=== PATIENT | female | born 1940 | race Caucasian/White ===

== ENCOUNTER 2020-08-18 09:46 | Outpatient (REF) | payer MEDICARE, SELFPAY ==
--- NOTE | ~2020-08-18 | MM_ITS ---
EXAMINATION: BONE DENSITOMETRY CLINICAL INDICATION: Age-related osteoporosis without current pathological fracture. COMPARISON: Previous BD dated 07/27/2017 and baseline BD dated 05/01/2012. TECHNIQUE: Using a [employer] DXA System (software version: 13.1) manufactured by [employer], dual-energy x-ray absorptiometry was performed of the lumbar spine and left hip. The images are of good technical quality. Summary results are attached. FINDINGS: AP SPINE L1-L2 (excluding L3 and L4): The data of L1-L4 has been changed to exclude the L3 and L4 vertebral bodies, because degenerative changes at these levels may cause overestimation of lumbar spine density. Current: BMD 0.847 g/cm2, Z-score -0.7, T-score -2.7, osteoporosis, 18.5% increase from previous, 9.7% increase from baseline (<5% change is not significant). Prior: BMD 0.715 g/cm2. Baseline: BMD 0.772 g/cm2. LEFT FEMUR, NECK: Current: BMD 0.704 g/cm2, Z-score -0.2, T-score -2.4, osteopenia. Prior: BMD 0.705 g/cm2. Baseline: BMD 0.725 g/cm2. LEFT FEMUR, TOTAL: Current: BMD 0.803 g/cm2, Z-score 0.4, T-score -1.6, osteopenia, 1.3% increase from previous, 4.2% decrease from baseline (<5% change is not significant). Prior: BMD 0.793 g/cm2. Baseline: BMD 0.838 g/cm2. IDENTIFIED RISK FACTORS: Osteoporosis. Secondary osteoporosis (early menopause). HISTORY OF FRACTURE: None listed. MEDICATIONS: Calcium supplement and/or multivitamin. Vitamin D. MM/XR DEXA axial skeleton IMPRESSION: 1. DIAGNOSIS: Osteoporosis based on the lowest T-score value of -2.7 in the lumbar spine applying World Health Organization criteria. 2. 10-YEAR FRACTURE RISK PREDICTION, FRAX: Major osteoporotic fracture (clinical spine, forearm, hip or shoulder) 18.1%. Hip fracture 6.2%. 3. Treatment Recommendations: NOF guidelines recommend consideration for treatment in postmenopausal women and men age 50 and older presenting with the following: -A hip or vertebral (clinical or morphometric) fracture. -T-score less than or equal to -2.5 at the femoral neck or spine after appropriate evaluation to exclude secondary causes. -Low bone mass at the hip or spine and a 10-year fracture probability by FRAX of greater than or equal to 3% for hip fracture or greater than or equal to 20% for major osteoporotic fracture based on the [place] adapted WHO algorithm. 4. Other Recommendations: All treatment decisions require clinical judgment and consideration of individual patient factors, including patient preferences, comorbidities, previous drug use, risk factors not captured in the FRAX model (e.g. frailty, falls, vitamin D deficiency, increased bone turnover, interval significant decline in bone density) and possible under or overestimation of fracture risk by FRAX. Additional medical evaluation for secondary cause of low bone mineral density may be appropriate. FUTURE SCAN RECOMMENDATION: People with diagnosed cases of osteoporosis or at high risk for fracture should have regular bone mineral density tests. For patients eligible for Medicare, routine testing is allowed once every 2 years. The testing frequency can be increased to one year for patients who have rapidly progressing disease, those who are receiving or discontinuing medical therapy to restore bone mass, or have additional risk factors.
== END 2020-08-18 09:47 | disposition home or self-care (01) ==
LOC: HO.MAMMO 09:46
PROVIDERS: Visit Provider Internal Medicine
DX: Z13.820 Encounter for screening for osteoporosis (principal); M81.0 Age-related osteoporosis without current pathological fracture; Z78.0 Asymptomatic menopausal state; Z79.899 Other long term (current) drug therapy
CPT/HCPCS: 77080

== ENCOUNTER 2022-09-22 14:28 | Outpatient (REF) | payer MEDICARE, SELFPAY ==
--- NOTE | ~2022-09-22 | MM_ITS ---
EXAMINATION: BONE DENSITOMETRY CLINICAL INDICATION: Osteoporosis. COMPARISON: Previous BD dated 08/18/2020 and baseline BD dated 05/01/2012. TECHNIQUE: Using a [employer] DXA System (software version: 13.1) manufactured by [employer], dual-energy x-ray absorptiometry was performed of the lumbar spine and left hip. The images are of good technical quality. Summary results are attached. FINDINGS: LEFT FEMUR, NECK: Current: BMD 0.709 g/cm2, Z-score 0.0, T-score -2.4, osteopenia. Prior: BMD 0.704 g/cm2. Baseline: BMD 0.725 g/cm2. LEFT FEMUR, TOTAL: Current: BMD 0.763 g/cm2, Z-score 0.3, T-score -1.9, osteopenia, 5.0% decrease from previous, 8.9% decrease from baseline (<5% change is not significant). Prior: BMD 0.803 g/cm2. Baseline: BMD 0.838 g/cm2. AP SPINE L1-L2 (excluding L3 and L4): The data of L1-L4 has been changed to exclude the L3 and L4 vertebral bodies, because degenerative sclerosis at these levels may cause overestimation of lumbar spine density. Current: BMD 0.814 g/cm2, Z-score -0.9, T-score -2.9, osteoporosis, 3.9% decrease from previous, 5.4% increase from baseline (<5% change is not significant). Prior: BMD 0.847 g/cm2. Baseline: BMD 0.772 g/cm2. IDENTIFIED RISK FACTORS: Early menopause, osteoporosis, secondary osteoporosis. HISTORY OF FRACTURE: None listed. MEDICATIONS: Calcium, vitamin D. MM/XR DEXA axial skeleton IMPRESSION: 1. DIAGNOSIS: Osteoporosis based on the lowest T-score value of -2.9 in the lumbar spine applying World Health Organization criteria. 2. 10-YEAR FRACTURE RISK PREDICTION, FRAX: According to the guidelines, FRAX calculation should only be performed on patients in the osteopenia bone density category. Therefore, FRAX was not performed on this patient. 3. Treatment Recommendations: NOF guidelines recommend consideration for treatment in postmenopausal women and men age 50 and older presenting with the following: -A hip or vertebral (clinical or morphometric) fracture. -T-score less than or equal to -2.5 at the femoral neck or spine after appropriate evaluation to exclude secondary causes. -Low bone mass at the hip or spine and a 10-year fracture probability by FRAX of greater than or equal to 3% for hip fracture or greater than or equal to 20% for major osteoporotic fracture based on the [place] adapted WHO algorithm. 4. Other Recommendations: All treatment decisions require clinical judgment and consideration of individual patient factors, including patient preferences, comorbidities, previous drug use, risk factors not captured in the FRAX model (e.g. frailty, falls, vitamin D deficiency, increased bone turnover, interval significant decline in bone density) and possible under or overestimation of fracture risk by FRAX. Additional medical evaluation for secondary cause of low bone mineral density may be appropriate. FUTURE SCAN RECOMMENDATION: People with diagnosed cases of osteoporosis or at high risk for fracture should have regular bone mineral density tests. For patients eligible for Medicare, routine testing is allowed once every 2 years. The testing frequency can be increased to one year for patients who have rapidly progressing disease, those who are receiving or discontinuing medical therapy to restore bone mass, or have additional risk factors.
== END 2022-09-22 14:29 | disposition home or self-care (01) ==
LOC: HO.MAMMO 14:28
PROVIDERS: PCP Internal Medicine; Visit Provider Internal Medicine
DX: Z13.820 Encounter for screening for osteoporosis (principal); Z78.0 Asymptomatic menopausal state; M81.0 Age-related osteoporosis without current pathological fracture
CPT/HCPCS: 77080

== ENCOUNTER → 2022-09-22 14:30 | Outpatient (BNV) | payer MEDICARE, SELFPAY | PROVIDERS: PCP Internal Medicine; Visit Provider Radiology Diagnostic Radiology | DX: M85.89 Other specified disorders of bone density and structure, multiple sites (principal) | CPT/HCPCS: 77080 ==

== ENCOUNTER 2023-03-08 09:35 | Outpatient (AMB) | payer MEDICARE, SELFPAY ==
--- NOTE | 2023-03-08 09:38 | A.OFFVIS_ITS ---
Intake Vital Signs 03/08/23 09:48 Weight 133 lb BP 145/65 H Blood Pressure Location Lt brachial Position Sitting Pulse 65 Intake Visit Reasons: Incisional hernia mid abdomen Intake Note: This patient was referred by for an assessment for incisional hernia mid abdomen. Pt c/o; incisional hernia, reports hard lump, reports bulge, reports hernia is located where had previous surgery. 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 She had undergone laparotomy for small-bowel obstruction in 2012. She had been doing well since that time. However she has noticed this reducible mass on the part of the incision for several years now. She says that sometimes the mass seems to be bigger than other times. She describes a little bit of discomfort although no significant pain She otherwise says that she has been doing well overall with regards to her health. She did have procedure for her chronic back pain over a year ago. [facility] Medical History (Updated 03/08/23 @ 10:03 by Blu Asif MD) Incisional hernia Surgical History History of section History of surgical procedure (~03/12/12) Social History Alcohol intake: never Patient Tobacco Use Status: Never used Tobacco Review of Systems Const Denies chills and Denies fever(s) Card Denies chest pain, Denies dyspnea and Denies dyspnea on exertion Resp Denies cough, Denies dyspnea and Denies dyspnea on exertion GI Denies hematochezia and Denies change in bowel habits Denies hematuria Musc Denies back pain and Denies limited range of motion Neuro Denies focal weakness and Denies convulsions Psych Denies depression and Denies mood swings Physical Exam Vital Signs: Last Vital Signs Pulse 65 03/08/23 09:48 BP 145/65 H 03/08/23 09:48 Const General: comfortable and no acute distress Orientation/consciousness: patient oriented x3 Neck Neck: Yes no lymphadenopathy Resp Auscultation: clear to auscultation bilaterally Cardio Rhythm: regular rhythm GI Other: Vague hernia on the lower part of the incision, difficult to define fascial defect, more pronounced with Valsalva Palpation (GI): Soft to palpation, nontender and no guarding Neuro General: patient oriented x3 Assessment & Plan Assessment & Plan (1) Incisional hernia: Code(s): K43.2 - Incisional hernia without obstruction or gangrene Plan: It appears that she has an incisional hernia on the lower part of her laparotomy incision. She also has a history of C-sections in the past I am going to send her for a CT scan to define this hernia. I will discuss her options thereafter including surgical repair after review of the CT scan She will therefore see me in the office after CT scan is done. She seems to be doing well overall. Coding Level of Care Code New Pt Level 3 (06509) Diagnoses Incisional hernia K43.2
[2023-03-08 09:48] VITALS: BP 145/65; PULSE 65
== END 2023-03-08 10:03 | disposition home or self-care (01) ==
PROVIDERS: PCP Internal Medicine; Visit Provider Surgery
DX: K43.2 Incisional hernia without obstruction or gangrene (principal)
CPT/HCPCS: 99203

== ENCOUNTER → 2023-03-08 09:35 | Outpatient (BNVA) | payer MEDICARE, SELFPAY | PROVIDERS: PCP Internal Medicine; Visit Provider Surgery | DX: K43.2 Incisional hernia without obstruction or gangrene (principal) | CPT/HCPCS: 99202 ==

== ENCOUNTER 2023-04-10 10:40 | Outpatient (REF) | payer MEDICARE, SELFPAY ==
--- NOTE | ~2023-04-10 | CT_ITS ---
EXAMINATION: CT ABDOMEN AND PELVIS WITHOUT CONTRAST CLINICAL INFORMATION: Incisional hernia without obstruction or gangrene. COMPARISON: CT abdomen and pelvis dated 03/08/2012. TECHNIQUE: Multidetector volumetric imaging was performed from the superior aspect of the liver through the pubic symphysis. Sagittal and coronal reformatted images were obtained on the technologist's workstation. This CT examination was performed using dose optimization techniques as appropriate, variously including the following: *Automated exposure control *Adjustment of mA and/or kV according to patient size (this includes techniques or standardized protocols for targeted exams where dose is matched to indication/reason for exam; i.e. extremities or head) *Use of iterative reconstruction technique DLP: 446 mGy-cm FINDINGS: LUNG BASES: The visualized lung bases are unremarkable. LIVER, GALLBLADDER, AND BILIARY TREE: The liver is normal in size, shape, and attenuation. A 2.6 cm cyst within the hepatic tail is not significantly changed from 03/08/2012. No new focal hepatic lesion or biliary ductal dilatation is present. The gallbladder is unremarkable with no evidence of radiopaque gallstones, gallbladder wall thickening, or obvious pericholecystic inflammatory changes. PANCREAS: Unremarkable. SPLEEN: Unremarkable. ADRENAL GLANDS: The right adrenal gland is normal. The left adrenal gland is somewhat hypertrophic and unchanged from 03/08/2012. No discrete nodule is again appreciated. KIDNEYS AND URETERS: The kidneys are normal in size, shape, and attenuation. No hydronephrosis, hydroureter, or calculi seen. At the lower pole of the right kidney (4:232), a 6.6 cm minimally complex, almost certainly benign cyst is seen, with tiny posterior wall calcification. There are multiple benign, simple appearing left parapelvic cysts. These bilateral cysts require no imaging follow-up. No perinephric stranding. BLADDER: Unremarkable. GASTROINTESTINAL TRACT: Within the left abdomen, there is a patent, somewhat patulous small bowel anastomotic staple line, without pathologic dilatation of small bowel loops. There is mild diverticulosis, without acute diverticulitis. There is a moderate stool burden, suggesting mild constipation, without suzanne obstruction noted. There is no free intraperitoneal air or abscess. ABDOMINAL WALL: There is a small umbilical hernia defect with neck measuring 1.4 x 0.7 cm (4:271 and 6:69). Within the lower midline abdomen (4:435 and 6:64), a fat-containing incisional hernia is seen, with neck measuring 2.1 x 1.3 cm. There is a very small fat-containing left inguinal hernia. LYMPH NODES: Normal. VASCULAR: There is moderate aortoiliac vascular calcifications. No abdominal aortic aneurysm is seen. PELVIC VISCERA: The uterus and adnexa are unremarkable. OSSEOUS STRUCTURES: There is moderate degenerative disc disease at L2-L3. At L3-L4 and L4-L5, there is marked degenerative disc disease with disc space narrowing and vacuum disc phenomenon. At L3-L4, there is a 4 mm anterolisthesis, and at L4-L5, there is a 5 mm anterolisthesis. No acute or aggressive osseous finding is noted. CT/CT abdomen pelvis wo IV con IMPRESSION: 1. There are small abdominal wall hernia defects, as detailed. 2. There is a patent small bowel anastomotic staple line. No bowel obstruction, free intraperitoneal air or abscess is seen. Findings suggest mild constipation. There is mild diverticulosis, without acute diverticulitis. 3. There are degenerative changes of the spine, most pronounced at L3-L4 and L4-L5. Fleischner guidelines were followed.
== END 2023-04-10 10:41 | disposition home or self-care (01) ==
LOC: HO.CT 10:40
PROVIDERS: PCP Internal Medicine; Visit Provider Surgery
DX: K43.2 Incisional hernia without obstruction or gangrene (principal)
CPT/HCPCS: 74176

== ENCOUNTER 2023-04-20 09:20 | Outpatient (AMB) | payer MEDICARE, SELFPAY ==
--- NOTE | 2023-04-20 09:36 | A.OFFVIS_ITS ---
Intake Vital Signs 04/20/23 09:37 Weight 132 lb BP 170/74 H Blood Pressure Location Rt brachial Position Sitting Pulse 61 Intake Visit Reasons: CT results Intake Note: This patient presents for a follow-up assessment for Ct-Scan results. Pt c/o;feeling anxious about results. Abd/pelvis CT: 04-10-23. 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 She chung d undergone laparo kenyon for small-bow el obstruction in 2012. She had bee n doing well since that time. Howev er she has noticed this reducible ma ss on the part of the incision for s everal years now. She says that so metimes the mass s eems to be bigger than other times. She describes a l ittle bit of disco mfort although no significant pain She otherwise say s that she has bee n doing well overa ll with regards to her health. She did have procedure for her chronic b ack pain over a ye ar ago. She is here to discuss h er CT scan. She d enies any new comp laints. She says she has remained p hysically active. [facility] Medical History Incisional hernia Surgical History History of section History of surgical procedure (~03/12/12) Social History Alcohol intake: never Patient Tobacco Use Status: Never used Tobacco Review of Systems Const Denies chills and Denies fever(s) Card Denies chest pain, Denies dyspnea and Denies dyspnea on exertion Resp Denies cough, Denies dyspnea and Denies dyspnea on exertion GI Denies hematochezia and Denies change in bowel habits Denies hematuria Musc Denies back pain and Denies limited range of motion Neuro Denies focal weakness and Denies convulsions Psych Denies depression and Denies mood swings Physical Exam Vital Signs: Last Vital Signs Pulse 61 04/20/23 09:37 BP 170/74 H 04/20/23 09:37 Const General: comfortable and no acute distress Orientation/consciousness: patient oriented x3 Neck Neck: Yes no lymphadenopathy Resp Auscultation: clear to auscultation bilaterally Cardio Rhythm: regular rhythm GI Other: Palpable hernia on the lower abdomen in the midline along her previous laparotomy incision; small hernia felt on Valsalva on the umbilicus Palpation (GI): Soft to palpation, nontender and no guarding Neuro General: patient oriented x3 Assessment & Plan Assessment & Plan (1) Incisional hernia: Code(s): K43.2 - Incisional hernia without obstruction or gangrene Plan: I have reviewed her CAT scan. He has 2 incisional hernias. One is on the midline on the lower part of the abdomen measuring about almost 2 cm in diameter containing fat. There is a much smaller hernia seen on the umbilicus less than 1 cm in size also containing fat. Both hernias appear to be reducible. I explained to her the option of proceeding with repair of this 2 hernias. I discussed the technique of repair with mesh. I discussed the risks including but not limited to bleeding, infections, recurrence, bowel injury, postop pain, as well as the benefits and alternatives. I reviewed with her what to expect postoperatively She understands and wants to proceed. Coding Level of Care Code Est Pt Level 3 (28513) Diagnoses Incisional hernia K43.2
[2023-04-20 09:37] VITALS: BP 170/74; PULSE 61
== END 2023-04-20 10:06 | disposition home or self-care (01) ==
PROVIDERS: PCP Internal Medicine; Visit Provider Surgery
DX: K43.2 Incisional hernia without obstruction or gangrene (principal)
CPT/HCPCS: 99213

== ENCOUNTER → 2023-04-20 09:20 | Outpatient (BNVA) | payer MEDICARE, SELFPAY | PROVIDERS: PCP Internal Medicine; Visit Provider Surgery | DX: K43.2 Incisional hernia without obstruction or gangrene (principal) | CPT/HCPCS: 99212 ==

== ENCOUNTER 2023-05-30 07:48 | Day surgery (SDC) | payer MEDICARE, SELFPAY ==
[2023-05-26 14:01] VITALS: BMI 23.8
--- NOTE | 2023-05-29 10:32 | HO.ANESPROP2 ---
HPI - Anesthesia Eval Consult details Narrative: 82yo F for Hernia Incisional Reducible repair X2, with possible mesh PMFSH Active Problems Active Problems: All Active Problems Incisional hernia (Acute) Past Medical History Medical History Incisional hernia Surgical History Surgical History History of section History of surgical procedure (~03/12/12) Social History Social History Alcohol intake: never Patient Tobacco Use Status: Never used Tobacco Are you DNR?: No Advance Directives: No Advance Directives Information Provided: Yes Nutrition Risks: No Nutritional Risk Meds Allergies Allergy/AdvReac Type Severity Reaction Status Date / Time No Known Allergies Allergy Verified 05/30/23 08:18 [No Known Allergies*] Home Medications ?Medication ?Instructions ?Recorded ?Confirmed ?Last Taken ?Type multivitamin 1 tab PO DAILY 03/08/23 05/30/23 Unknown History PreserVision Lutein 05/30/23 05/30/23 Unknown History calcium carbonate 600 mg 05/30/23 Unknown History cholecalciferol (vitamin D3) 1,000 unit 05/30/23 Unknown History Exam Height,Weight and Vital Signs: Height 5 ft 2 in Weight 58.967 kg Assessment and Plan Assessment Anesthesia Assessment: Chart Reviewed
[2023-05-30] VITALS (7 sets, daily range): BP systolic 104–142; BP diastolic 46–77; PULSE 59–72; RESP 16–20; TEMP 37; O2SAT 96–99; BMI 23.8
[2023-05-30] MEDS: Lactated Ringers 1,000 ML 100 ML IVCONT (08:09)
--- NOTE | 2023-05-30 09:32 | MHC.SHP ---
Pre-Procedural Eval Section A - 24 Hr Update-Section A only Date of Service: 05/30/23 Section B - Complete if H&P > 30 days Chief Complaint: Incisional hernia without obstruction or gangrene Details of Present Illness: has multiple incisional hernias, previous laparotomy for SBO in 2012 Relevant Family History (Specify if Yes): No Relevant Social History: None Present Medications: see Short Stay Collaborative assessment Medical History: Significant History (laparotomy for SBO in 2012) Allergies: Allergies Allergy/AdvReac Type Severity Reaction Status Date / Time No Known Allergies Allergy Verified 05/30/23 08:18 [No Known Allergies*] Review of Systems Sugical H&P ROS: Negative: Constitution, Cardiovascular, Respiratory, Neurological, Psychiatric, Hem-Onc, Allergic/Immunologic, Gastrointestinal, Genitourinary, Musculoskeletal, Integumentary, Endocrine and Eyes/Ears/Nose/Throat Exam Surgical H&P Exam: Normal: HEENT, Normal: Heart, Normal: Lungs, Normal: Extremities, Normal: Skin and Normal: Neurological and Significant Findings: Abdomen (hernia on umbilicus and low midline,reducible) Plan Diagnosis/Plan: Unchanged I have reviewed the history and physical and performed a pertinent physical examination on my patient. No changes have occurred unless specified. Time Spent With Patient Time: Total time managing care of this patient today ____ minutes.
--- NOTE | 2023-05-30 10:09 | P.OP_ITS ---
Operative Note Operative Note Date of Service: 05/30/23 Narrative: Preop diagnosis s: Incisional hernias x2 Postop diagnosis: incisional hernias x2 Procedure: Repair of incisional hernias x2 with Ventralex mesh Surgeon: Blu Asif MD assistant passenger locomotive engineer: ROBERTO Strong The patient is an 82 year old female had a previous laparotomy for small bowel obstruction, and had developed 2 incisional hernias. This was seen on a CT scan. This were both fat containing. She understood the technique of repair with mesh and was aware of the risks, benefits, and alternatives She was brought to the operating room placed supine under general anesthesia via laryngeal mask airway. The abdomen was prepped and draped this was sterile fashion. A surgical time-out was done. The patient received cefazolin 2 g IV preoperatively The hernias were palpable, 1 in the lower midline and the other in the area of the umbilicus just inferiorly. I made the incision on the lower midline 1st using blade 15. And this carried down with electrocautery through the full- thickness of the skin subcutaneous fat until the hernia sac was visualized. I sharply dissected the hernia sac off of the rest of the subcutaneous layer until I was able to define the fascial defect. The hernia sac was opened to define the entire hernia defect. This defect measured about 2 cm in diameter. I used a medium-sized Ventralex mesh and this was incision underneath the defect with good overlap. I secured the Prolene straps of the mesh the fascial edges on both sides with Prolene 2 sutures. I closed the defect with the [id number] 1 stitch. I made sure there was there was no bowel loops stuck around the fascial edges. I then proceeded to make an incision on the infraumbilical margin using blade 15 and this was carried down through the full-thickness of the skin subcutaneous fat until was able to visualize the 2nd hernia. I sharply dissected the sac off of the subcutaneous layer until was able to clearly visualize the fascial defect. The sac was opened to define the is defect. This defect measured about 3 cm. I therefore used medium-sized Ventralex mesh. This was position underneath the fascial defect with good overlap. I secured the Rojas straps of the mesh to the fascial edge with Prolene 2 sutures. I closed the fascia with a running Maxon 1 stitch All incisions were irrigated. Both incisions were closed with subcuticular running 4-0 Polysorb sutures. Both incisions were infiltrated with Marcaine 0.5% for postop NORRIS. Dressings were applied. The procedure was completed. The patient tolerated procedure well. There were no immediate complications. Initial and final counts of sponges and instruments were correct. Estimated blood loss was about less than 20 cc. The patient was extubated without difficulty and transferred to the recovery room with stable vital signs.
== END 2023-05-30 11:28 | disposition home or self-care (01) ==
PROVIDERS: PCP Internal Medicine; Visit Provider Surgery
PROC: (CPT 49593; principal; 2023-05-30 09:40)
DX: K43.2 Incisional hernia without obstruction or gangrene (principal); Z98.890 Other specified postprocedural states; Z79.899 Other long term (current) drug therapy
CPT/HCPCS: 49593; C1781; J0131; J0665; J0690; J1100; J2405; J2704; J3010

== ENCOUNTER → 2023-05-30 07:48 | Outpatient (BNV) | payer MEDICARE, SELFPAY | PROVIDERS: PCP Internal Medicine; Visit Provider Surgery | DX: K43.2 Incisional hernia without obstruction or gangrene (principal) | CPT/HCPCS: 49593 ==

== ENCOUNTER 2023-06-14 09:42 | Outpatient (AMB) | payer MEDICARE, SELFPAY ==
--- NOTE | 2023-06-14 09:53 | MHC.OFFVIS ---
Intake Visit Reasons: S/P incisional hernia x2 Intake Note: This patient presents for a post-op assessment status post incisional hernia x2. Patient c/o; reports no complaints pertaining to surgery. 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 She tolerated procedure well. She currently seems to be doing well denies significant complaints. [facility] Medical History Incisional hernia Surgical History History of incisional hernia repair History of section History of surgical procedure (~03/12/12) Social History Alcohol intake: never Patient Tobacco Use Status: Never used Tobacco Review of Systems Const Denies chills and Denies fever(s) Card Denies chest pain, Denies dyspnea and Denies dyspnea on exertion Resp Denies cough, Denies dyspnea and Denies dyspnea on exertion GI Denies hematochezia and Denies change in bowel habits Denies hematuria Musc Denies back pain and Denies limited range of motion Neuro Denies focal weakness and Denies convulsions Psych Denies depression and Denies mood swings Physical Exam Const General: comfortable and no acute distress Resp Effort & Inspection: normal respiratory effort GI Other: Incisions are well healed, repair intact Palpation (GI): Soft to palpation, not firm and no guarding Assessment & Plan Assessment & Plan (1) Incisional hernia: Code(s): K43.2 - Incisional hernia without obstruction or gangrene Category: Medical Plan: Status post repair of 2 incisional hernias with mesh. She is doing very well. Her incisions are well healed. The repair her intact. I advised her to avoid any lifting more than 15 lb or any strenuous activities for at least another month. She can otherwise follow up on a p.r.n. basis. Coding Level of Care Code Global (97027) Diagnoses Incisional hernia K43.2
== END 2023-06-14 10:15 | disposition home or self-care (01) ==
PROVIDERS: PCP Internal Medicine; Visit Provider Surgery
DX: K43.2 Incisional hernia without obstruction or gangrene (principal)
CPT/HCPCS: 99212

== ENCOUNTER → 2023-06-14 09:42 | Outpatient (BNVA) | payer MEDICARE, SELFPAY | PROVIDERS: PCP Internal Medicine; Visit Provider Surgery | DX: K43.2 Incisional hernia without obstruction or gangrene (principal); Z48.815 Encounter for surgical aftercare following surgery on the digestive system | CPT/HCPCS: 99212 ==

== ENCOUNTER 2024-09-06 10:11 | Outpatient (REF) | payer MEDICARE, SELFPAY ==
--- OUTSIDE RECORDS SUMMARY | 2024-09-06 10:23 | XMS_ITS | Patient Health Record ---
Author Organization [facility] Address [address] [place] [id number] Care Team Providers Care Elementary Classroom Teacher Name Role Phone Reese Bullard Jr Reason For Referral No Information Plan Of Treatment No Information
--- OUTSIDE RECORDS SUMMARY | 2024-09-06 10:23 | XMS_ITS | Clinical Summary ---
Author Organization [facility] Address [address] [place] [id number] Phone Care Team Providers Care Desktop Technician Name Role Phone Jayme Johnson MD Primary Care Provider [phone] Jose Poole MD Unavailable Allergies No known active allergies Medications cholecalciferol (VITAMIN D3) 1,000 unit tablet Take 1 tablet by mouth 2 (two) times a day. Active VIT C/VIT E AC/LUT/COPPER/ZI NC (PRESERVISION LUTEIN ORAL) Take 1 tablet by mouth 2 (two) times a day. Active calcium carbonate (CALCIUM 600 ORAL) Take 1 capsule by mouth 2 (two) times a day. Active TURMERIC ORAL Take 2 capsules in the AM and 1 capsule in the evening. Active Medication-Free TextIndications: 8 oz Black tea w/ 2 tsp honey and 2 tsp apple cider vinegar for inflammation Twice a day Indications: 8 oz Black tea w/ 2 tsp honey and 2 tsp apple cider vinegar for inflammation Active Active Problems Problem Noted Date Diagnosed Date Cervicalgia 09/09/2022 Assessment & Plan (09/09/2022 2:57 PM EDT): Neck stiffness with acute on chronic disposition. Most recent x-ray showing degenerative changes and this was discussed with the patient today the x-ray that is. The patient has been doing well with 400 mg of ibuprofen and is reticent to the idea of taking medicine but since she had the progress with ibuprofen 400 we will call in ibuprofen 600 which she can take 3 times a day as needed with a lockout period of 8 hours. Palpating her neck it was quite taut so suggesting to her also 20 minutes on 10 minutes off heat. That could be for example thermic care but also could be a heating blanket that she can do in use later on as well. 20 minutes on 10 minutes off. Age-related osteoporosis humberto [place] current pathological fracture 06/28/2021 Hyperlipidemia 06/15/2017 Pure hypercholesterolemia 06/15/2017 Routine medical exam 06/15/2017 Immunizations Immunization Administration Dates Next Due COVID-19 (Pre-11/28) Pfizer Vaccine, Bivalent 12 + 10/26/2021 COVID-19 (Pre-11/28) Pfizer Vaccine, mRNA, PF ,03/18/2020 Td (adult) 5 Lf Tetanus Toxoid, PF, Adsorbed 02/2005 Family History Medical History Relation Comments Cancer Brother 2 Breast cancer Sister Relation Status Comments Brother 1 (Age 80) VALVUALR HEART R DEISEASE Brother 2 (Age 61) PANCREATIC CAN CER Father Mother Sister (Age 50) Social History Tobacco Use Types Packs/Day Years Used Date Smoking Tobacco: Never Smokeless Tobacco: Never Tobacco Cessation:Counseling Given: Not Answered Alcohol Use Standard Drinks/Week Comments Not Currently 0 (1 standard drink = 0.6 oz pur e alcohol) Education Answer Date Recorded Are you interested in more education? Not on tanya e 06/03/2022 Are you concerned about learning? Not on file 06/03/2022 No 06/03/2022 No 06/03/2022 Digital Access Answer Date Recorded No 07/04/2022 No 07/04/2022 Reliable internet access at home? Not on file 07/04/2022 Device with a working camera? Not on file Intimate Partner Violence Answer Date R ecorded Denied Basic Needs Not on file 09/07/2023 In the past 12 months have y ou been in a relationship with a person who hurts, threatens, or tries to control you? No 09/07/2023 Worried food would run out Not on file 09/06 In the past 12 months have y ou been in a relationship with a person who hurts, threatens, or tries to control you? No 09/07/2023 Comments No Sex and Gender Information Value Date Recorded Sex Assigned at Not on file Legal Sex Female 10:11 PM EDT Gender Identity Not on file Sexual Orientation Not on file Last Filed Vital Signs Vital Sign Reading Time Taken Comments Blood Pressure 134/68 09/07/2023 9:41 AM EDT Pulse 54 09/07/2023 9:41 AM EDT Temperature 36.2 C (97.2 F) 09/07/2023 9:41 AM EDT Respiratory Rate 16 09/07/2023 9:41 AM EDT Oxygen Saturation 99% 09/07/2023 9:41 AM EDT Inhaled Oxygen Concentration - - Weight 60.7 kg (133 lb 12.8 oz) 09/07/2023 9:41 AM EDT Height 158.4 cm (5' 2.36 ) 09/07/2023 9:41 AM ED T Body Mass Index 24.19 09/07/2023 9:41 AM EDT Plan of Treatment Upcoming Encounters Date Type Department Care Team (Late st Contact Info) Description 09/11/2024 9:30 AM EDT Office Visit [facility] Internal Medicine [address] [place] [address] Jayme Johnson MD [address] [place] [address] [email or web address] Health Maintenance Due Date Last Done Comments PNEUMOCOCCAL VACCINES (50+ years) (1 of 1 - PCV) 08/03/1991 ZOSTER VACCINES (1 of 2) 08/03/1991 Adult Td,Tdap Booster 10/08/2015 10/07/2005 RSV VACCINE (1 - 1-dose 75+ series) 2016 COVID-19 VACCINE ( season) 2023 10/26/2021, 06/21/2021, 12/24/2020, Additional history exists DEPRESSION SCREENING 09/06/2024 09/07/2023 FOLLOW UP BONE DENSITY TESTING 09/30/2024 09/30/2022, 08/18/2020, 07/27/2017 OSTEOPOROSIS SCREENING INITIAL (ONE-TIME) Completed 09/30/2022, 08/18/2020, 07/27/2017 HEPATITIS A VACCINES Aged Out No long er eligible based on patient's age to complete this topic HIB VACCINES Aged Out No longer eligi ble based on patient's age to complete this topic MENINGOCOCCAL VACCINES (ACWY) Aged Out No longer eligible based on patient's age to complete this topic MENINGOCOCCAL VACCINES (B) Aged Out N o longer eligible based on patient's age to complete this topic Medical Devices Not on file Procedures Procedure Name Priority Date/Time Associated Diagnosis Comments BD DXA MONITORING Routine 09/30/2022 11: 38 AM EDT Age-related osteoporosis without current pathological fracture from Last 3 Months or Most Recently Relevant to Health Maintenance Results * DXA Monitoring (09/30/2022 11:38 AM EDT) Anatomical Region Laterality Modality Bone Density Bone Density us Jayme Johnson MD IMG BD BONE DENSITY DEXA Nallely l Result from Last 3 Months or Most Recently Relevant to Health Maintenance Insurance [facility] MEDICARE PPO BLUE REPLACEMENT [address] [place] [id number] [facility] MEDICARE PPO [address] [place] [address] MED[address] [address] [place] [address] [address] [place] [address] [address] [place] [address] MEDICARE PPO BLUE [place] [place] [address] MEDICARE PPO BLUE RE[place]AC[place] MEDIC[place] P[place] BLUE REPLACEMENT Care Teams Desktop Technician Relationship Specialty Start Date End Date Jayme Johnson MD [address] [place] [address] [email or web address] PCP - General 11/21/16 Jose Poole MD [address] [place] [phone] Obstetrics and Gynecology 06/25/19 Additional Source Comments The information contained in this document represents components of the legal health record. It is not the complete legal health record.[facility]
[2024-09-06 10:38] LABS: MANUAL DIFF FLAG NO
[2024-09-06 11:16] LABS: Hematocrit 44.6 % (37.0-47.0); Hemoglobin 14.5 g/dl (12.0-16.0); Imm Gran Abs Auto 0.02 X10*3/uL (0.00-0.03); Imm Gran Pct Auto 0.3 % (0.0-0.4); Lymphocytes Absolute Auto 1.8 X10*3/uL (1.2-4.9); Mean Corpuscular HGB Conc 32.5 g/dl (31.0-35.0); Mean Corpuscular Hemoglobin 29.6 pg (27.0-33.0); Mean Corpuscular Volume 91.0 fL (80.0-98.0); NRBC Abs Auto 0.000 X10*3/uL (0.0-0.012); NRBC Pct Auto 0.0 /100WBC (0.0-0.2); Platelet Count 232 X10*3/uL (160-400); Red Blood Count 4.90 X10*6/uL (4.20-5.50); White Blood Count 6.2 X10*3/uL (4.8-10.8)
[2024-09-06 12:35] LABS: Hemoglobin A1C 121.7581 umol/L; Total Hemoglobin (HGBA1C) 3763.1668 umol/L
[2024-09-06 13:17] LABS: Alanine Aminotransferase 18 U/L (0-31); Albumin Level 4.2 g/dL (3.5-5.0); Alkaline Phosphatase 66 U/L (39-117); Anion Gap 11 (12-20); Aspartate Amino Transferase 30 U/L (5-31); Blood Urea Nitrogen 25 mg/dL (9-16); Calcium 9.7 mg/dL (8.4-10.2); Carbon Dioxide 27 mmol/L (22-29); Chloride 109 mmol/L (96-108); Cholesterol 252 mg/dL (<200); Estimated Glomerular Filt Rate > 60; HDL Cholesterol 60 mg/dL (>40); Potassium 4.3 mmol/L (3.3-5.1); Sodium 143 mmol/L (135-145); Total Protein 7.2 g/dL (6.5-8.0); Triglycerides 144 mg/dL (<150)
== END 2024-09-06 10:12 | disposition home or self-care (01) ==
LOC: HO.LAB 10:11
PROVIDERS: PCP Internal Medicine; Visit Provider Internal Medicine
DX: Z00.00 Encounter for general adult medical examination without abnormal findings (principal); M81.0 Age-related osteoporosis without current pathological fracture; R73.01 Impaired fasting glucose
CPT/HCPCS: 36415; 80053; 80061; 83036; 84443; 85025